=== PATIENT | female | born 1965 | race Two or more races ===

== ENCOUNTER 2018-03-12 10:21 | Outpatient (CLI) | payer OTHER | END 2018-03-12 10:32 | disposition home or self-care (01) | LOC: SONOGRAMA 10:21 | DX: E04.1 Nontoxic single thyroid nodule (principal) ==

== ENCOUNTER 2019-06-12 23:36 | Emergency (ER) | payer OTHER ==
[~2019-06-12] VITALS: Ht 165.1 cm; Wt 62.1 kg
[2019-06-13] MEDS ORDERED: MELOXICAM15 MG (00:05)
[2019-06-13] MEDS ORDERED: ULTRACET PO (02:38)
== END 2019-06-13 03:08 | disposition home or self-care (01) ==
LOC: ER 23:36
DX: N93.8 Other specified abnormal uterine and vaginal bleeding (principal)

== ENCOUNTER 2019-10-11 01:42 | Emergency (ER) | payer OTHER ==
[~2019-10-11] VITALS: Ht 165.1 cm; Wt 63.0 kg
[~2019-10-11 01:42] MED LIST: MELOXICAM15 MG; ULTRACET PO
[2019-10-11] MEDS ORDERED: LOVAZA1 GM (02:00)
[2019-10-11] MEDS ORDERED: COMPLEX B-1001 EACH (02:00)
== END 2019-10-11 10:55 | disposition home or self-care (01) ==
LOC: ER 01:42
DX: J11.1 Influenza due to unidentified influenza virus with other respiratory manifestations (principal)

== ENCOUNTER 2021-10-25 08:35 | Outpatient (CLI) | payer OTHER ==
[~2021-10-25 08:35] MED LIST changes: +COMPLEX B-1001 EACH; +LOVAZA1 GM
== END 2021-10-25 08:38 | disposition home or self-care (01) ==
LOC: SONOGRAMA 08:35
PROVIDERS: ATTEND Pathology Anatomic Pathology & Clinical Pathology
DX: E04.2 Nontoxic multinodular goiter (principal)